=== PATIENT | female | born 1975 | race Two or more races ===

== ENCOUNTER 2016-03-14 14:16 | Inpatient (IN) | payer MEDICAID, OTHER ==
[~2016-03-14] VITALS: Ht 154.9 cm; Wt 68.6 kg
[2016-03-14 15:38] LABS: Basophils # (auto) 0 uL; Basophils % (auto) 0.3 % (0.0-2.0); Eosinophils # (auto) 0.2 uL; Eosinophils % (auto) 4.1 % (0.0-7.0); Hematocrit 40.8 % (36.0-46.0); Hemoglobin 13.2 g/dL (12.2-16.2); Lymphocytes # (auto) 1.8 uL; Lymphocytes % (auto) 34.6 % (10.0-50.0); Mean Corpuscular Hemoglobin 28.3 pg (28.0-32.0); Mean Corpuscular Hgb Conc. 32.4 g/dL (32.0-36.0); Mean Corpuscular Volume 87.2 fL (80.0-100.0); Mean Platelet Volume 8.1 fL (7.4-10.4); Monocytes # (auto) 0.2 uL; Monocytes % (auto) 4.8 % (0.0-12.0); Neutrophils # (auto) 2.9 uL; Neutrophils % (auto) 56.2 % (37.0-80.0); Platelet Count (auto) 317 10^3/uL (140-450); Red Cell Distribution Width 14.7 % (11.6-16.0); White Blood Cell 5.2 10^3/uL (4.4-10.8)
[2016-03-14 15:48] LABS: Albumin 3.9 g/dL (3.4-5.0); BUN/Creatinine Ratio 19.7; Bilirubin, Total 0.2 mg/dL (0.2-1.0); Calcium 8.3 mg/dL (8.5-10.1); Potassium 4.2 mmol/L (3.5-5.1); Total Protein 6.8 g/dL (6.4-8.2)
[2016-03-14] MEDS ORDERED: LORazepam 2MG/ML-1ML VIAL ONE (16:17)
[2016-03-14] MEDS ORDERED: LORazepam 2MG/ML-1ML VIAL IV ONE (16:17)
[2016-03-14] MEDS ORDERED: SODIUM CHLORIDE 0.9% 1,000 ML IV ONE (17:00)
[2016-03-14 17:39] LABS: Urine RBC None Seen /hpf (0 - 4)
[2016-03-14 17:54] LABS: Urine Bilirubin Negative (Negative); Urine Blood Negative /uL (Negative); Urine Color Yellow (Yellow); Urine Glucose Normal (Normal); Urine Ketone Negative (Negative); Urine Nitrite Negative (Negative); Urine Squamous Epithelial Cell FEW /hpf (<5); Urine Urobilinogen Normal (Negative); Urine pH 5.5 (5.0-8.0)
[2016-03-14 18:02] LABS: Acetaminophen < 2.0 ug/mL (10-30); Salicylate < 1.7 mg/dL (2.8-20.0)
[2016-03-14] MEDS ORDERED: MORPHINE SULF INJ 2 MG/ML SYRINGE 1ML IV PRN (22:00)
[2016-03-14] MEDS ORDERED: LACTULOSE 20Gm/30ML SOLN PO PRN (22:00)
[2016-03-14] MEDS ORDERED: LORazepam 2MG/ML-1ML VIAL IV PRN (22:00)
[2016-03-14] MEDS ORDERED: NITROGLYCERIN 0.4 MG SL TAB SL PRN (22:00)
[2016-03-14] MEDS: PHENYTOIN SODIUM 100 MG CAP PO SCH (22:24)
[2016-03-14] MEDS: SODIUM CHLORIDE 0.9% 1,000 ML IV SCH ×2 (22:24→22:25)
[2016-03-14] MEDS: HYDROcodone-ACET 5/325MG TAB PO PRN (22:25)
[2016-03-14 22:55] VITALS: BP 118/67
[2016-03-14 23:23] VITALS: BP 118/67
[2016-03-15 05:05] VITALS: BP_SYST 113; BP_SYST 92; BP_DIAS 57; BP_DIAS 66
[2016-03-15 05:27] LABS: Basophils # (auto) 0 uL; Basophils % (auto) 0.8 % (0.0-2.0); Eosinophils # (auto) 0.1 uL; Eosinophils % (auto) 2.4 % (0.0-7.0); Hematocrit 34.7 % (36.0-46.0); Hemoglobin 11.4 g/dL (12.2-16.2); Lymphocytes # (auto) 1.9 uL; Lymphocytes % (auto) 30.2 % (10.0-50.0); Mean Corpuscular Hemoglobin 28.5 pg (28.0-32.0); Mean Corpuscular Hgb Conc. 32.9 g/dL (32.0-36.0); Mean Corpuscular Volume 86.6 fL (80.0-100.0); Mean Platelet Volume 7.9 fL (7.4-10.4); Monocytes # (auto) 0.4 uL; Monocytes % (auto) 6.7 % (0.0-12.0); Neutrophils # (auto) 3.7 uL; Neutrophils % (auto) 59.9 % (37.0-80.0); Platelet Count (auto) 281 10^3/uL (140-450); Red Cell Distribution Width 14.4 % (11.6-16.0); White Blood Cell 6.2 10^3/uL (4.4-10.8)
[2016-03-15] MEDS: PHENYTOIN SODIUM 100 MG CAP PO SCH ×3 (05:43→23:04)
[2016-03-15] MEDS: HYDROcodone-ACET 5/325MG TAB PO PRN ×2 (05:44→09:48)
[2016-03-15 05:47] LABS: BUN/Creatinine Ratio 14.3; Bilirubin, Total 0.3 mg/dL (0.2-1.0); Calcium 7.3 mg/dL (8.5-10.1); Potassium 3.8 mmol/L (3.5-5.1); Total Protein 5.5 g/dL (6.4-8.2)
[2016-03-15 09:00] VITALS: BP 104/53
[2016-03-15] MEDS: ENOXAPARIN SOD 30 MG/0.3 ML SYRINGE SC SCH (09:36)
[2016-03-15 13:00] VITALS: BP 105/64
[2016-03-15 22:00] VITALS: BP 116/64
[2016-03-15] MEDS ORDERED: PROPRANOLOL HCL 20 MG TAB PO SCH (22:00)
[2016-03-15] MEDS: PROPRANOLOL HCL 20 MG TAB PO SCH (23:07)
[2016-03-16 05:00] VITALS: BP 100/60
[2016-03-16] MEDS: PHENYTOIN SODIUM 100 MG CAP PO SCH ×2 (07:18→13:43)
[2016-03-16 08:11] VITALS: BP 113/60
[2016-03-16] MEDS: PROPRANOLOL HCL 20 MG TAB PO SCH (09:17)
[2016-03-16] MEDS: ENOXAPARIN SOD 30 MG/0.3 ML SYRINGE SC SCH (09:18)
[2016-03-16 12:48] VITALS: BP 126/69
[2016-03-16 14:17] VITALS: BP 126/69
== END 2016-03-16 15:35 | disposition home or self-care (01) | DRG 53 ==
LOC: ER 14:30 → TELE 14:31 → TELE-WESTW 23:14
PROVIDERS: ADMIT Family Medicine; ATTEND Hospitalist
DX: G40.409 Other generalized epilepsy and epileptic syndromes, not intractable, without status epilepticus (principal); E86.0 Dehydration; G43.109 Migraine with aura, not intractable, without status migrainosus
CPT/HCPCS: 36415; 51702; 70450; 80053; 80185; 80320; 80329; 81001; 85025; 93005; 96361; 96374; 99291; G0434

== ENCOUNTER 2016-10-17 14:37 | Emergency (ER) | payer MEDICAID ==
[~2016-10-17] VITALS: Ht 160 cm; Wt 72.6 kg
[2016-10-17] MEDS ORDERED: SODIUM CHLORIDE 0.9% 500 ML IVB ONE (15:07)
[2016-10-17 15:23] LABS: Basophils # (auto) 0.2 uL; Basophils % (auto) 1.7 % (0.0-2.0); CONDITION Y; Eosinophils # (auto) 0 uL; Eosinophils % (auto) 0.2 % (0.0-7.0); Hematocrit 37.5 % (36.0-46.0); Hemoglobin 12.5 g/dL (12.2-16.2); Lymphocytes # (auto) 1.4 uL; Lymphocytes % (auto) 15.3 % (10.0-50.0); Mean Corpuscular Hemoglobin 27.4 pg (28.0-32.0); Mean Corpuscular Hgb Conc. 33.4 g/dL (32.0-36.0); Mean Platelet Volume 8.9 fL (7.4-10.4); Monocytes # (auto) 0.2 uL; Monocytes % (auto) 2.8 % (0.0-12.0); Neutrophils # (auto) 7.1 uL; Platelet Count (auto) 398 10^3/uL (140-450); Red Cell Distribution Width 16.6 % (11.6-16.0); White Blood Cell 8.9 10^3/uL (4.4-10.8)
[2016-10-17 15:43] LABS: Albumin 3.8 g/dL (3.4-5.0); Anion Gap 15 (5-15); Aspartate Aminotransferase 22 U/L (15-37); BUN/Creatinine Ratio 16.2; Blood Urea Nitrogen 17 mg/dL (7-18); Calcium 8.1 mg/dL (8.5-10.1); Carbon Dioxide 14 mmol/L (21-32); Chloride 110 mmol/L (98-107); GFR African American 74 mL/min; GFR Non-African American 61 mL/min; Glucose 109 mg/dL (74-106); Magnesium 2.5 mg/dL (1.6-2.6); Potassium 3.8 mmol/L (3.5-5.1); Sodium 139 mmol/L (136-145)
[2016-10-17] MEDS ORDERED: LORazepam 2MG/ML-1ML VIAL IV ONE (15:45)
[2016-10-17 15:46] LABS: Alkaline Phosphatase 63 U/L (45-117); Bilirubin, Total 0.2 mg/dL (0.2-1.0); Total Protein 6.9 g/dL (6.4-8.2)
[2016-10-17 18:52] VITALS: BP 110/70
== END 2016-10-17 19:18 | disposition home or self-care (01) ==
LOC: EDUNIT# 14:37 → ER 14:39
DX: G40.909 Epilepsy, unspecified, not intractable, without status epilepticus (principal); R42 Dizziness and giddiness; E78.5 Hyperlipidemia, unspecified
CPT/HCPCS: 36415; 70450; 80053; 80320; 83735; 85025; 93005; 94761; 96361; 96374; 99285; J2060; J7030

== ENCOUNTER 2017-01-09 11:56 | Inpatient (IN) | payer MEDICAID ==
[~2017-01-09] VITALS: Ht 154.9 cm; Wt 64.6 kg
[2017-01-09 12:43] LABS: Eosinophils # (auto) 0 uL; Hemoglobin 12.5 g/dL (12.2-16.2); Mean Corpuscular Hemoglobin 26.3 pg (28.0-32.0); Monocytes # (auto) 0.3 uL; Monocytes % (auto) 3.8 % (0.0-12.0); Platelet Count (auto) 320 10^3/uL (140-450)
[2017-01-09 12:45] LABS: Basophils # (auto) 0 uL; Basophils % (auto) 0.6 % (0.0-2.0); Eosinophils % (auto) 0.4 % (0.0-7.0); Hematocrit 37.8 % (36.0-46.0); Lymphocytes # (auto) 0.8 uL; Lymphocytes % (auto) 11.6 % (10.0-50.0); Mean Corpuscular Volume 79.6 fL (80.0-100.0); Neutrophils # (auto) 5.8 uL; Neutrophils % (auto) 83.6 % (37.0-80.0); Red Blood Cells 4.75 10^6/uL (4.0-5.20); Red Cell Distribution Width 15.4 % (11.8-14.3)
[2017-01-09] MEDS ORDERED: LORazepam 2MG/ML-1ML VIAL ONE (12:47)
[2017-01-09] MEDS ORDERED: LORazepam 2MG/ML-1ML VIAL IV ONE (13:00)
[2017-01-09 13:05] LABS: Albumin 3.8 g/dL (3.4-5.0); BUN/Creatinine Ratio 18.9; Bilirubin, Total 0.2 mg/dL (0.2-1.0); Calcium 8.2 mg/dL (8.5-10.1); Magnesium 2.5 mg/dL (1.6-2.6); Potassium 4.2 mmol/L (3.5-5.1); Total Protein 7.2 g/dL (6.4-8.2)
[2017-01-09] MEDS ORDERED: TOPI200C PO (13:28)
[2017-01-09] MEDS ORDERED: TOPI100C PO (13:28)
[2017-01-09] MEDS ORDERED: MORPHINE SULFATE 10 MG/ML INJ 1ML SDV IV PRN ×2 (13:45)
[2017-01-09] MEDS ORDERED: LACTULOSE 20Gm/30ML SOLN PO PRN (13:45)
[2017-01-09] MEDS ORDERED: TEMAZEPAM 15 MG CAP PO PRN (13:45)
[2017-01-09] MEDS ORDERED: NITROGLYCERIN 0.4 MG SL TAB SL PRN (13:45)
[2017-01-09] MEDS ORDERED: LORazepam 0.5 MG TAB PO PRN (13:45)
[2017-01-09] MEDS ORDERED: PROMETHAZINE HCL 25 MG/ML 1ML IV PRN (13:45)
[2017-01-09] MEDS ORDERED: LORazepam 2MG/ML-1ML VIAL IV PRN ×2 (13:45→15:00)
[2017-01-09] MEDS: SODIUM CHLORIDE 0.9% 1,000 ML IV SCH (15:10)
[2017-01-09] MEDS: TOPIRAMATE 100 MG TAB PO SCH ×2 (15:12→22:05)
[2017-01-09 18:11] VITALS: BP 112/65
[2017-01-09 20:42] LABS: Urine WBC None Seen /hpf (0 - 5)
[2017-01-09 21:04] LABS: Urine Amorphous Crystal MOD /hpf (None Seen); Urine Bacteria NONE SEEN /hpf (None Seen); Urine Blood Negative /uL (Negative); Urine Specific Gravity 1.007 (1.001-1.035)
[2017-01-09 21:19] LABS: Alcohol, Urine < 3.0 mg/dL (0-5); Amphetamine Screen, Urine NEGATIVE (NEGATIVE); Barbiturate Scree,Urine NEGATIVE (NEGATIVE); Benzodiazephine Screen, Urine NEGATIVE (NEGATIVE); Cannabinoid Screen, Urine NEGATIVE (NEGATIVE); Cocaine Screen, Urine NEGATIVE (NEGATIVE); Opiate Scree,Urine NEGATIVE (NEGATIVE); Phencyclidine Screen, Urine NEGATIVE (NEGATIVE)
[2017-01-09] MEDS ORDERED: LEVETIRACETAM 500 MG TAB PO SCH ×2 (22:00)
[2017-01-09 22:38] VITALS: BP 96/61
[2017-01-10] MEDS: SODIUM CHLORIDE 0.9% 1,000 ML IV SCH ×2 (03:15→16:43)
[2017-01-10] MEDS: ACETAMINOPHEN 500 MG TAB PO PRN (05:14)
[2017-01-10 05:47] VITALS: BP 99/49
[2017-01-10] MEDS: TOPIRAMATE 100 MG TAB PO SCH ×3 (06:21→21:46)
[2017-01-10] MEDS: HYDROcodone-ACET 5/325MG TAB PO PRN (08:05)
[2017-01-10 09:00] VITALS: BP 144/75
[2017-01-10 13:00] VITALS: BP 96/61
[2017-01-10 17:54] VITALS: BP 107/68
[2017-01-10 22:00] VITALS: BP 90/54
[2017-01-11 05:00] VITALS: BP 98/61
[2017-01-11] MEDS: SODIUM CHLORIDE 0.9% 1,000 ML IV SCH (05:35)
[2017-01-11] MEDS: ACETAMINOPHEN 500 MG TAB PO PRN (05:50)
[2017-01-11] MEDS: TOPIRAMATE 100 MG TAB PO SCH ×2 (05:50→13:44)
[2017-01-11 09:00] VITALS: BP 98/60
[2017-01-11] MEDS: HYDROcodone-ACET 5/325MG TAB PO PRN (09:58)
[2017-01-11 13:00] VITALS: BP 113/65
[2017-01-11] MEDS ORDERED: TOPI100T29 PO (15:45)
[2017-01-11 16:56] VITALS: BP 113/65
[2017-01-11 17:25] VITALS: BP 98/58
== END 2017-01-11 18:18 | disposition home health service (06) | DRG 53 ==
LOC: ER 11:56 → TELE 11:57 → TELE-CENTR 17:45
PROVIDERS: ADMIT Internal Medicine; ATTEND Internal Medicine
DX: G40.419 Other generalized epilepsy and epileptic syndromes, intractable, without status epilepticus (principal); E78.5 Hyperlipidemia, unspecified; G43.109 Migraine with aura, not intractable, without status migrainosus
CPT/HCPCS: 36415; 70551; 80053; 80307; 81001; 83735; 85025; 85652; 93005; 94761; 96374

== ENCOUNTER 2018-01-10 16:10 | Emergency (ER) | payer MEDICAID ==
[~2018-01-10] VITALS: Ht 154.9 cm; Wt 65.3 kg
[~2018-01-10 16:10] MED LIST: TOPI100T29 PO
[2018-01-10 18:40] VITALS: BP 123/84
[2018-01-10 19:58] LABS: Basophils # (auto) 0.1 uL; Basophils % (auto) 0.9 % (0.0-2.0); Eosinophils # (auto) 0.3 uL; Eosinophils % (auto) 3.1 % (0.0-7.0); Hemoglobin 14.8 g/dL (12.2-16.2); Lymphocytes # (auto) 2.3 uL; Lymphocytes % (auto) 26.9 % (10.0-50.0); Mean Corpuscular Hemoglobin 29.2 pg (28.0-32.0); Mean Corpuscular Hgb Conc. 33.6 g/dL (32.0-36.0); Mean Corpuscular Volume 86.9 fL (80.0-100.0); Monocytes # (auto) 0.4 uL; Monocytes % (auto) 5.1 % (0.0-12.0); Neutrophils # (auto) 5.4 uL; Platelet Count (auto) 323 10^3/uL (140-450); Red Blood Cells 5.06 10^6/uL (4.0-5.20); Red Cell Distribution Width 15.5 % (11.8-14.3); White Blood Cell 8.4 10^3/uL (4.4-10.8)
[2018-01-10 20:13] LABS: Prothrombin Time 10.7 sec (9.27-12.13)
[2018-01-10 20:16] LABS: Albumin 3.9 g/dL (3.4-5.0); Calcium 9.1 mg/dL (8.5-10.1); Potassium 3.8 mmol/L (3.5-5.1)
[2018-01-10 20:19] LABS: BUN/Creatinine Ratio 19.7; Bilirubin, Total 0.2 mg/dL (0.2-1.0); Total Protein 7.6 g/dL (6.4-8.2)
== END 2018-01-10 21:48 | disposition home or self-care (01) ==
LOC: ER 16:10
DX: H49.02 Third [oculomotor] nerve palsy, left eye (principal); H49.9 Unspecified paralytic strabismus; E78.5 Hyperlipidemia, unspecified
CPT/HCPCS: 36415; 70450; 80053; 80185; 83036; 84443; 85025; 85610